=== PATIENT | male | born 1985 | race African-American/Black ===

== ENCOUNTER 2017-01-05 09:56 | Emergency (ER) | payer OTHER | END 2017-01-05 10:50 | disposition home or self-care (01) | LOC: D.ER 09:56 | DX: S61.411A Laceration without foreign body of right hand, initial encounter (principal); W26.0XXA Contact with knife, initial encounter ==

== ENCOUNTER 2017-01-16 20:54 | Emergency (ER) | payer OTHER | END 2017-01-16 21:25 | disposition home or self-care (01) | LOC: D.ER 20:54 | DX: S61.411D Laceration without foreign body of right hand, subsequent encounter (principal); L08.9 Local infection of the skin and subcutaneous tissue, unspecified; X58.XXXD Exposure to other specified factors, subsequent encounter; Y92.89 Other specified places as the place of occurrence of the external cause; Z48.02 Encounter for removal of sutures; R50.9 Fever, unspecified ==

== ENCOUNTER 2018-01-17 21:06 | Emergency (ER) | payer OTHER ==
[~2018-01-17] VITALS: Ht 162.6 cm; Wt 72.7 kg
[2018-01-17 21:27] VITALS: BP 133/94; Ht 162.6 cm; Wt 72.7 kg
[2018-01-17] MEDS ORDERED: NAPROSYN500 MG PO (23:10)
[2018-01-17] MEDS ORDERED: ULTRAM50 MG PO (23:10)
== END 2018-01-17 23:11 | disposition home or self-care (01) ==
LOC: D.ER 21:06
DX: M77.01 Medial epicondylitis, right elbow (principal); F17.200 Nicotine dependence, unspecified, uncomplicated

== ENCOUNTER 2019-09-02 12:38 | Inpatient (IN) | payer SELFPAY ==
[~2019-09-02] VITALS: Ht 162.6 cm; Wt 70.9 kg
[~2019-09-02 12:38] MED LIST: NAPROSYN500 MG PO; ULTRAM50 MG PO
[2019-09-02 14:09] LABS: BASOPHILS 0.3 % (0-2); EOSINOPHILS 2.9 % (0-7); HEMATOCRIT 38.3 % (42.0-54.0); HEMOGLOBIN 12.3 g/dL (13.5-17.5); IMMATURE GRANULOCYTES 0.2 % (0-5); LYMPHOCYTES 12.9 % (15-50); MCH 24.4 pg (26.0-34.0); MCHC 32.1 g/dL (31.0-37.0); MEAN PLATELET VOLUME 9.4 fL (7.4-10.4); MONOCYTES 4.6 % (2-11); NEUTROPHILS 79.1 % (40-80); PLATELET COUNT 265 10x3/uL (130-400); RBC 5.04 10x6/uL (4.20-6.10); RDW 13.1 % (11.5-14.5); WBC 9.7 10x3/uL (4.8-10.8)
[2019-09-02 14:24] LABS: CALC OSMOLALITY 275 mosm/kg (275-300); CALCIUM 9.1 mg/dL (8.5-10.1); CARBON DIOXIDE 29.3 mmol/L (21.0-32.0); CHLORIDE - SERUM 103 mmol/L (98-107); GLUCOSE 92 mg/dL (74-106); POTASSIUM - SERUM 3.9 mmol/L (3.5-5.1); SODIUM 139 mmol/L (136-145); UREA NITROGEN 6 mg/dL (7-18); eGFR NON AFRICAN AMERICAN > 90 mL/min (90-120)
[2019-09-02 14:29] LABS: ALBUMIN 3.5 g/dL (3.4-5.0); ALKALINE PHOSPHATASE 80 U/L (30-120); ALT (SGPT) 151 U/L (10-68); BILIRUBIN - TOTAL 0.85 mg/dL (0.2-1.3); PROTEIN - SERUM 7.5 g/dL (6.4-8.2)
--- NOTE | 2019-09-02 18:05 | NUR ---
PT ARRIVED VIA WHEEELCHIAR TO ROOM, STATES PAIN IS AT A NINE. FAMILY MEMBER AT BEDSIDE. CL IN REACH, SRX2, AMBULATES WITHOUT ASSIST.
--- NOTE | 2019-09-02 19:24 | NUR ---
RECEIVED UP IN BED WITH EYES OPEN AND TV ON. VISITOR AT BEDSIDE. ALERT AND ORIENTED X4. UP AD MARIANO TO B/R. IV TO LT FA WITH NS INFUSING AT 125CC/HR. DENIES ANY NEEDS AT THIS TIME.
[2019-09-02 20:00] VITALS: BP 137/76
[2019-09-03] VITALS: BP 142/87
[2019-09-03 00:07] VITALS: BP 136/92; BMI 27.5
[2019-09-03 05:09] LABS: BASOPHILS 0.5 % (0-2); EOSINOPHILS 3.4 % (0-7); HEMATOCRIT 34.6 % (42.0-54.0); IMMATURE GRANULOCYTES 0.2 % (0-5); LYMPHOCYTES 13.2 % (15-50); MCH 24.3 pg (26.0-34.0); MCHC 31.8 g/dL (31.0-37.0); MCV 76.4 fL (80.0-100.0); MEAN PLATELET VOLUME 9.5 fL (7.4-10.4); MONOCYTES 5.5 % (2-11); NEUTROPHILS 77.2 % (40-80); PLATELET COUNT 256 10x3/uL (130-400); RBC 4.53 10x6/uL (4.20-6.10); RDW 13.1 % (11.5-14.5)
[2019-09-03 05:27] LABS: ALKALINE PHOSPHATASE 65 U/L (30-120); ALT (SGPT) 115 U/L (10-68); BILIRUBIN - TOTAL 0.68 mg/dL (0.2-1.3); CALC OSMOLALITY 280 mosm/kg (275-300); CALCIUM 8.7 mg/dL (8.5-10.1); CARBON DIOXIDE 29.4 mmol/L (21.0-32.0); CHLORIDE - SERUM 105 mmol/L (98-107); CREATININE - SERUM 1.1 mg/dL (0.6-1.3); GLUCOSE 100 mg/dL (74-106); POTASSIUM - SERUM 3.9 mmol/L (3.5-5.1); PROTEIN - SERUM 6.4 g/dL (6.4-8.2); SODIUM 142 mmol/L (136-145); UREA NITROGEN 7 mg/dL (7-18); eGFR NON AFRICAN AMERICAN 81 mL/min (90-120)
--- NOTE | 2019-09-03 09:48 | NUR ---
PT ALERT AND ORIENTED, SITTING IN BED WHEN I ENTERED. FAMILY MEMBER AT BEDSIDE. PT COMPLAINTS OF PAIN TO THE AFFECTED SIDE OF HIS FACE BUT STATES THAT IT IS OVERAL BETTER THAN YESTERDAY. PT AKSING ABOUT WHEN HE MAY GO HOME, BUT UNDERSTANDS TO WAIT FOR THE TO ROUND. CL IN REACH, SRX2,
[2019-09-03 10:04] VITALS: BP 139/87
--- NOTE | 2019-09-03 10:21 | NUR ---
I have reviewed this patient and I concur with the Shift Assessment completed by the Licensed Practical Nurse today this shift.
[2019-09-03 12:04] VITALS: Ht 162.6 cm; Wt 70.9 kg
[2019-09-03 13:48] VITALS: BP 147/86
[2019-09-03 17:38] VITALS: BP 149/96
--- NOTE | 2019-09-03 18:21 | NUR ---
PT AWAKE AND ORIENTED, C/O PAIN IN THE AFFECTED SIDE OF HIS FACE. ADMINISTERED PAIN MEDS PER MD ORDER. NO OTHER OMPALINTS OR CONCERNS AT THIS ITME. CL INR EACH,SRX2.
--- NOTE | 2019-09-03 19:47 | NUR ---
RECEIVED UP IN ROOM AMBULATING. IV TO LT FA WITH NS AT 100CC/HR. NO REDNESS OR SWELLING TO AREA AND DSG CDI. GOES OUTSIDE TO SMOKE. REMINDED THAT IF HE HAS HIS MORPHINE HE WILL NOT BE ABLE TO GO OUTSIDE DUE TO SAFTEY ISSUES. VERBAL AGREEMENT GIVEN. DENIES ANY NEEDS AT THIS TIME.
[2019-09-03 20:00] VITALS: BP 138/84
[2019-09-03 22:45] LABS: UDS - AMPHET NEGATIVE QUAL (NEGATIVE); UDS - BARB NEGATIVE QUAL (NEGATIVE); UDS - BENZO NEGATIVE QUAL (NEGATIVE); UDS - COCAINE NEGATIVE QUAL (NEGATIVE); UDS - OPIATE POSITIVE QUAL (NEGATIVE); UDS - PCP NEGATIVE QUAL (NEGATIVE); UDS - THC POSITIVE QUAL (NEGATIVE)
[2019-09-03 22:49] LABS: BILIRUBIN NEGATIVE (NEGATIVE); GLUCOSE NEGATIVE (NEGATIVE); KETONE NEGATIVE (NEGATIVE); NITRITE NEGATIVE (NEGATIVE); UROBILINOGEN NORMAL (NORMAL)
[2019-09-04 04:00] VITALS: BP 150/85
[2019-09-04 06:38] LABS: BASOPHILS 0.4 % (0-2); EOSINOPHILS 3.2 % (0-7); HEMATOCRIT 33.9 % (42.0-54.0); HEMOGLOBIN 10.7 g/dL (13.5-17.5); IMMATURE GRANULOCYTES 0.1 % (0-5); LYMPHOCYTES 17.4 % (15-50); MCH 24.2 pg (26.0-34.0); MCHC 31.6 g/dL (31.0-37.0); MCV 76.5 fL (80.0-100.0); MEAN PLATELET VOLUME 9.9 fL (7.4-10.4); NEUTROPHILS 71.9 % (40-80); PLATELET COUNT 290 10x3/uL (130-400); RBC 4.43 10x6/uL (4.20-6.10); RDW 12.9 % (11.5-14.5); WBC 9.4 10x3/uL (4.8-10.8)
[2019-09-04 07:09] LABS: CALC OSMOLALITY 278 mosm/kg (275-300); CALCIUM 8.3 mg/dL (8.5-10.1); CHLORIDE - SERUM 104 mmol/L (98-107); GLUCOSE 102 mg/dL (74-106); POTASSIUM - SERUM 4.2 mmol/L (3.5-5.1); SODIUM 141 mmol/L (136-145); UREA NITROGEN 8 mg/dL (7-18); eGFR NON AFRICAN AMERICAN > 90 mL/min (90-120)
--- NOTE | 2019-09-04 07:15 | NUR ---
PT RESTING PEACEFULLY, EYES CLOSED BREATHS EVEN/REGULAR AND UNLABORED. NO SIGNS OR SYMTPOMS OF ACUTE DISTRESS NTOED AT THIS TIME. FAMILY MEMBER AT BEDSIDE ALSO SLEEPING PEACEFULLY. CL IN REACH, SRX2.
--- NOTE | 2019-09-04 09:39 | NUR ---
PT AWAKE AND ORIENTED, PACING ROOM. PT IS EXTREMELY UPSET AND FEELS LIKE WE ARE NOT DOING ENOUGH FOR HIM. REQUESTING MORE PAIN MEDICATION BUT IT IS TOO EARLY I GAVE HIM MORHPINE LESS THAN 1.5 HOURS AGO, LESS THAN 1HR WHEN HE INITAILLY ASKED FOR MORE PAIN MEDICATIONS. CALLED HEMALATHA PETERSON AND REQUESTED HYDROCHODONE FOR THE PT A DIFFERENT PAIN CONTROL ALTERANTIVE. WHILE GETTING THAT ORDER PTS FATHER CAME UP TO THE DESK STATING HE WANTED THE PT D/C SO THEY COULD TAKE HIM TO [place] AND RECIEVE "BETTER" CARE. PT REPEATEDLY ASKED ME IF I WAS SURE THAT I ACTAULLY GAVE HIM THE 4MG OF MORPHINE. I DEFFINITLY DID SHOWED IN MY MAR. PT IS ALSO UPSET HE CAN NO LONGER GO OUTSIDE TO SMOKE D/T THE INCREASED PRECATUIONS THE HOSPITAL INTRODUCED THIS MORNING. CL IN REACH,S RX2.
[2019-09-04 11:00] VITALS: BP 137/65
--- NOTE | 2019-09-04 12:22 | NUR ---
PT AWAKE AND ORIENTED. HAS BEEN COMPLAINING OF TOOTH PAIN ALL DAY. BAGGAGE PORTER ORDERED DILAUDID AND 800MG IBUPROPHIN LESS THAN 1 HR AFTER I GAVE NORCO AND LESS THAN 2 HOURS AFTER I GAVE MORPHINE. DOUBLE CHEKCED WITH HER THAT SHE WANTED ME TO GIVE THE NEW ORDERS AT THE TIME OF HER ORDER, SHE CONFIRMED. ADMINISTERED PER BAGGAGE PORTER. GIRLFRIEND AT [facility]. CL IN REACH,S RX2.
--- NOTE | 2019-09-04 15:16 | NUR ---
I have reviewed this patient and I concur with the Shift Assessment completed by the Licensed Practical Nurse today this shift.
--- NOTE | 2019-09-04 16:52 | MORECARE ---
CASE MANAGEMENT DISCHARGE SUMMARY PATIENT: ABEL ORLANDO JR UNIT: [id number] ADM DATE: 09/02/19 AGE: 34 : 85 SEX: M ROOM/BED: D.2105 AUTHOR: LALITHA NORWOOD PHYSICIAN: REFERRING PHYSICIAN: JOSH CHENEY MD DATE OF SERVICE: 09/04/19 Discharge Plan Patient Name: ABEL ORLANDO [facility] [facility] 1985 Planned Disposition: Home Anticipated Discharge Date: 09/04/19 Discharge Date: Expected LOS: 2 Initial Reviewer: [email or web address] Initial Review Date: 09/02/2019 Generated: 09/04/19 5:51 pm Patient Name: ABEL ORLANDO Page [phone] at 1652 All edits/amendments must be made on the electronic document DICTATION DATE: 09/04/191650 REGISTERED NURSE CARDIAC: MIRZA 09/04/191650 RPT#: [id number] DC DATE: STATUS: ADM IN [facility] [address] [place] [address] END OF REPORT
--- NOTE | 2019-09-04 16:59 | MORECARE ---
CASE MANAGEMENT DISCHARGE SUMMARY PATIENT: ABEL ORLANDO JR UNIT: [id number] ADM DATE: 09/02/19 AGE: 34 : 85 SEX: M ROOM/BED: D.2105 AUTHOR: LALITHA NORWOOD PHYSICIAN: REFERRING PHYSICIAN: JOSH CHENEY MD DATE OF SERVICE: 09/04/19 Discharge Plan Patient Name: ABEL ORLANDO [facility] [facility] 1985 Planned Disposition: Home Anticipated Discharge Date: 09/04/19 Discharge Date: Expected LOS: 2 Initial Reviewer: [email or web address] Initial Review Date: 09/02/2019 Generated: 09/04/19 5:58 pm DCPIA - Discharge Planning Initial Assessment Updated by [email or web address]: Kalen Ventura on 09/04/19 4:54 pm * Is the patient Alert and Oriented? Yes * How many steps to enter\exit or inside your home? * PCP NONE * Pharmacy [facility] ON [address] * Preadmission Environment Home with Family * ADLs Independent * Equipment None * Other Equipment NO MEDICAL EQUIPMENT PROVIDER PREFERENCE * List name and contact numbers for known caregivers / representatives who currently or will assist patient after discharge: ABEL MARIO SR., FATHER, * Verbal permission to speak to the caregivers and representatives has been obtained from the patient. N/A * Community resources currently utilized None * Please name any agencies selected above. NONE * Additional services required to return to the preadmission environment? No * Can the patient safely return to the preadmission environment? Yes * Has this patient been hospitalized within the prior 30 days at any hospital? No Last DP export: 09/04/19 3:52 p Patient Name: ABEL ORLANDO Page [phone] at 1659 All edits/amendments must be made on the electronic document DICTATION DATE: 09/04/191657 MENTAL HYGIENIST: MIRZA 09/04/191657 RPT#: [id number] DC DATE: STATUS: ADM IN [facility] [address] [place] [address] END OF REPORT
--- NOTE | 2019-09-04 17:07 | MORECARE ---
CASE MANAGEMENT DISCHARGE SUMMARY PATIENT: ABEL ORLANDO JR UNIT: [id number] ADM DATE: 09/02/19 AGE: 34 : 85 SEX: M ROOM/BED: D.2107 AUTHOR: CUCO,DOC PHYSICIAN: REFERRING PHYSICIAN: JOSH CHENEY MD DATE OF SERVICE: 09/04/19 Discharge Plan Patient Name: ABEL ORLANDO Facility: [facility]:[place] : 1985 Planned Disposition: Home Anticipated Discharge Date: 09/04/19 Discharge Date: Expected LOS: 2 Initial Reviewer: [email or web address] Initial Review Date: 09/02/2019 Generated: 09/04/19 6:07 pm Comments DCP- Discharge Planning Updated by [email or web address]: Kalen Ventura on 09/04/19 4:[address] Patient Name: ABEL ORLANDO Admission Status: ER Accout number: [id number] Admission Date: 09-02-2019 : 1985 Admission Diagnosis: Attending: JOSH CHENEY Current LOS: 2 Anticipated DC Date: 09-04-2019 Planned Disposition: Home Primary Insurance: UNINSURED DISCOUNT PLAN Discharge Planning Comments: CM MET WITH PT IN ROOM TO DISCUSS DISCHARGE PLANNING AND NEEDS. PT REPORTS LIVING AT HOME INDEPENDENTLY WITH HIS FATHER. PT HAS NO MEDICAL EQUIPMENT AND NO OUTSIDE SERVICES ASSISTING IN THE HOME. CM DISCUSSED AVAILABILITY OF HOME HEALTH, REHAB SERVICES AND MEDICAL EQUIPMENT. PT DENIES DISCHARGE NEEDS, REPORTS HIS FATHER WILL PICK HIM UP FOR DISCHARGE HOME. PT STATES HAS NEW JOB AND IS PAYING FOR INSURANCE COVERAGE THAT WILL TAKE EFFECT 09-20-19. PT WAS TRYING TO WAIT UNTIL HIS INSURANCE WAS IN EFFECT TO GET DENTAL CARE FOR HIS INFECTED TOOTH. PT STATES THAT HE ONLY CAME TO EMERGENCY ROOM FOR ANTIBIOTICS AND THEY ADMITTED HIM. CM PROVIDED PT WITH [facility] [employer] PRESCRIPTION DISCOUNT CARD AND HEALTHY CONNECTIONS CLINIC INFORMATION. CM SPOKE TO SHAYY OF [employer], PT IS OVER INCOME FOR MEDICAID. PT PLANS TO DISCHARGE HOME WITH HIS FATHER, REPORTS ABILITY TO OBTAIN ORAL ANTIBIOTICS IF THEY ARE NOT TOO EXPENSIVE. CM TO FOLLOW AND ASSIST NECESSARY. Leaf Conditioner Helper: Kalen Ventura DCPIA - Discharge Planning Initial Assessment Updated by [email or web address]: Klaen Ventura on 09/04/19 4:54 pm * Is the patient Alert and Oriented? Yes * How many steps to enter\exit or inside your home? * PCP NONE * Pharmacy [facility] [address] * Preadmission Environment Home with Family * ADLs Independent * Equipment None * Other Equipment NO MEDICAL EQUIPMENT PROVIDER PREFERENCE * List name and contact numbers for known caregivers / representatives who currently or will assist patient after discharge: ABEL MARIOSR., FATHER, * Verbal permission to speak to the caregivers and representatives has been obtained from the patient. N/A * Community resources currently utilized None * Please name any agencies selected above. NONE * Additional services required to return to the preadmission environment? No * Can the patient safely return to the preadmission environment? Yes * Has this patient been hospitalized within the prior 30 days at any hospital? No Last DP export: 09/04/19 3:59 p Patient Name: ABEL ORLANDO Page 25052 at 1707 All edits/amendments must be made on the electronic document DICTATION DATE: 09/04/191706 OFFSET LITHOGRAPHIC PRESS OPERATOR: MIRZA 09/04/191706 RPT#: [id number] DC DATE: STATUS: ADM IN [facility] [address] [place] [address] END OF REPORT
--- NOTE | 2019-09-04 18:31 | NUR ---
PT AWAKE AND ORIENTED. SPENT 20 PLUS MINUTES EXPLAINING TO PT WHY HE COULD NOT HAVE IBUPROPHIN 800MG, DILAUDID 1MG AND NORCO 5'S ALL AT THE SAME TIME EVEN THOUGH I GAVE HIM A SIMILAR THING EARLIER THAT DAY (SEE MAR) PER KRISTEN SHELBY PERMISSION. TRIED TO EXPLAIN HOW STAGGERING PAIN MEDICATIONS WORK AND WHY IT'S BEST TO GET THE BEST EFFECT. PT NEVER REALLY GRASPED CONCEPT. I WROTE IT ALL ON THE BOARD WHEN [employer] AVALIBALE PAIN MEDIACATIONS WERE AND HOW OFTEN THEY WERE AVALIABLE. PT STILL CONFUSED.AFTER LEAVING, PT THEN MADE TRIPS OUT TO THE CART. HE WAS UNHOOKING HIS I/V. I'VE CAUGHT THE PT DOING THIS OTHER TIMES TODAY AND INSTURCTED HIM TO STOP, THAT I WOULD UNHOOK HIM IF IT WAS NEEDED. PT WOULD AGREE, THEN DO IT ANYWAY. THIS PAST TIME HE WAS RUNNING VANCOMOCIN. THIS WILL NOT BE CONDUSIVE TO THE PT GETTING BETTER. TRIED TO EXPLAIN THIS. CL INR EACH, SRX2 GIRLFRIEND AT BEDSIDE.
[2019-09-04 20:00] VITALS: BP 149/95
--- NOTE | 2019-09-04 21:35 | NUR ---
EVENING ROUNDS COMPLETED. PT AOOX4, VSS ALTHOUGH TEMP 100.1 AT THIS TIME. MOUTH SWOLLEN ON R.SIDE. PT C/O PAIN IN MOUTH 02/28. IV PRN DILAUDID GIVEN. ATBX INFUSING AT THIS TIME. PT DENIES ANY FURTHER NEEDS AT THIS TIME. WILL CPOC. CL WITHIN REACH.
[2019-09-05 01:22] VITALS: BP 128/90
[2019-09-05 05:14] LABS: BASOPHILS 0.8 % (0-2); HEMATOCRIT 34.9 % (42.0-54.0); HEMOGLOBIN 10.7 g/dL (13.5-17.5); IMMATURE GRANULOCYTES 0.1 % (0-5); LYMPHOCYTES 23.4 % (15-50); MCHC 30.7 g/dL (31.0-37.0); MCV 78.3 fL (80.0-100.0); MEAN PLATELET VOLUME 9.1 fL (7.4-10.4); MONOCYTES 6.7 % (2-11); PLATELET COUNT 280 10x3/uL (130-400); RBC 4.46 10x6/uL (4.20-6.10); RDW 12.8 % (11.5-14.5); WBC 7.3 10x3/uL (4.8-10.8)
--- NOTE | 2019-09-05 05:24 | NUR ---
PT PULLED OUT IV. PT STATES WHILE ASLEEP. NO S/S OF BLEEDING. NEW PIV STARTED IN RFA 20G X1. PT TOLERATE WELL. IV PRN DILAUDID GIVEN AT THIS TIME. PT VOICED THANKS. WILL CTM. CL WITHIN REACH.
[2019-09-05 05:34] LABS: CALC OSMOLALITY 279 mosm/kg (275-300); CALCIUM 8.6 mg/dL (8.5-10.1); CHLORIDE - SERUM 105 mmol/L (98-107); GLUCOSE 105 mg/dL (74-106); POTASSIUM - SERUM 3.8 mmol/L (3.5-5.1); SODIUM 141 mmol/L (136-145); UREA NITROGEN 10 mg/dL (7-18); eGFR NON AFRICAN AMERICAN > 90 mL/min (90-120)
[2019-09-05 05:46] LABS: CARBON DIOXIDE 30.4 mmol/L (21.0-32.0)
[2019-09-05 05:55] VITALS: BP 127/64
[2019-09-05 09:41] VITALS: BP 138/89
--- NOTE | 2019-09-05 12:00 | NUR ---
THIS ELECTRICAL PROSPECTING OBSERVER HEARD IV ALARMING, WENT TO ROOM TO FIX IV AND PATIENT OPEN HIS DOOR AND PUSHED THE BEEPING IV POLE OUT INTO THE HALLWAY, TURNED AROUND AND WENT BACK INTO HIS ROOM. BLIND ESCORT STATES PATIENT IS UPSET BECAUSE HE WANTS PAIN MEDICATION. PATIENTS NURSE MADE AWARE OF HIS ACTIONS AND THAT THE IV POLE IS TURNED OFF AND IN THE HALLWAY IN FRONT OF THE PATIENTS DOOR.
--- NOTE | 2019-09-05 13:07 | NUR ---
RESTS IN BED WITH CALL LIGHT IN REACH. IV PATENT TO RIGHT FA WITH NS INFUSING AT 100CC/HR. WARREN NEEDS AT THIS TIME. WILL MONITOR.
[2019-09-05 14:01] VITALS: BP 134/75
[2019-09-05 15:18] LABS: ALBUMIN 3.1 g/dL (3.4-5.0); BILIRUBIN - DIRECT 0.15 mg/dL (0.00-0.30); BILIRUBIN - INDIRECT 0.38 mg/dL (0.00-1.00); BILIRUBIN - TOTAL 0.53 mg/dL (0.2-1.3); PROTEIN - SERUM 6.1 g/dL (6.4-8.2)
[2019-09-05 18:10] VITALS: BP 138/70
[2019-09-05 20:00] VITALS: BP 122/81
[2019-09-06 00:16] VITALS: BP 121/93
--- NOTE | 2019-09-06 03:02 | NUR ---
2000) REC'D CHGE OF SHIFT WALKING ROUNDS REQUESTING IV PAIN MEDS. INSTRUCTED WAS TOO SOON.INFORMED TO NURSES ARE SUPPOSE TO BRING ME PAIN MED EVERY TWO HRS.INSTRUCTED HOWEVER PHYSICIAN HAS ORDERED PAIN MED TO BE GIVEN THAT IS HOW NURSING STAFF GIVES IT.FACIAL SWELLING OBSERVED RIGHT CHEEK.NO REDNESS OBSERVED.WILL CONTINUE TO MONITOR FOR ANY CHGES AND FOLLOW CURRENT PLAN OF CARE.
[2019-09-06 05:15] VITALS: BP 131/75
[2019-09-06 05:26] LABS: BASOPHILS 1.3 % (0-2); EOSINOPHILS 4.5 % (0-7); HEMATOCRIT 38.1 % (42.0-54.0); HEMOGLOBIN 11.7 g/dL (13.5-17.5); IMMATURE GRANULOCYTES 0.1 % (0-5); LYMPHOCYTES 23.4 % (15-50); MCHC 30.7 g/dL (31.0-37.0); MCV 78.2 fL (80.0-100.0); MEAN PLATELET VOLUME 9.9 fL (7.4-10.4); MONOCYTES 6.2 % (2-11); NEUTROPHILS 64.5 % (40-80); RBC 4.87 10x6/uL (4.20-6.10); RDW 12.9 % (11.5-14.5); WBC 7.1 10x3/uL (4.8-10.8)
[2019-09-06 05:34] LABS: PLATELET COUNT 373 10x3/uL (130-400)
[2019-09-06 05:37] LABS: CALC OSMOLALITY 277 mosm/kg (275-300); CALCIUM 9.3 mg/dL (8.5-10.1); CARBON DIOXIDE 31.5 mmol/L (21.0-32.0); CHLORIDE - SERUM 103 mmol/L (98-107); GLUCOSE 106 mg/dL (74-106); POTASSIUM - SERUM 4.3 mmol/L (3.5-5.1); SODIUM 140 mmol/L (136-145); UREA NITROGEN 10 mg/dL (7-18); eGFR NON AFRICAN AMERICAN > 90 mL/min (90-120)
--- NOTE | 2019-09-06 06:23 | NUR ---
I have reviewed this patient and I concur with the Shift Assessment completed by the Licensed Practical Nurse today this shift.
--- NOTE | 2019-09-06 07:10 | NUR ---
REPORT RECEIVED FROM RAIL CAR PAINTER/SANDBLASTER AND PATIENT CARE ASSUMED. PATIENT SITTNG UP IN BED AWAKE, ALERT AND ORIENTED X 4. PATIENT DENIES ANY NEEDS OR PAIN. CHANCE CONTINUE WITH PLAN OF CARE. SR UP X 2 BED IN LOW POSITION AND CALL LIGHT IN REACH.
[2019-09-06 07:59] VITALS: BP 127/70
[2019-09-06 11:42] VITALS: BP 116/58
[2019-09-06 15:38] VITALS: BP 119/72
--- NOTE | 2019-09-06 15:39 | NUR ---
PER GARCIA DICK APN, DC DILAUDED. ORDER COMPLETED
--- NOTE | 2019-09-06 19:18 | NUR ---
PATIENT SITTING UP IN BED ON THE PHONE. NO SIGNS OF ACUTE DISTRESS NOTED AT THIS TIME. PATIENT REQUESTS BLANKETS AND TOWELS. L FA IV, NS @75, NO REDNESS OR SWELLING NOTED. BED IN LOW POSITION, RAILS X2. BEDSIDE TABLE AND CALL LIGHT WITHIN REACH.
[2019-09-06 20:18] VITALS: BP 134/68
[2019-09-07 00:20] VITALS: BP 125/73
[2019-09-07 04:20] VITALS: BP 124/63
[2019-09-07 04:32] VITALS: BP 124/63
[2019-09-07 05:55] LABS: BASOPHILS 1.6 % (0-2); EOSINOPHILS 5.8 % (0-7); HEMATOCRIT 35.3 % (42.0-54.0); HEMOGLOBIN 10.8 g/dL (13.5-17.5); IMMATURE GRANULOCYTES 0.2 % (0-5); LYMPHOCYTES 31.4 % (15-50); MCH 23.8 pg (26.0-34.0); MCHC 30.6 g/dL (31.0-37.0); MCV 77.9 fL (80.0-100.0); MEAN PLATELET VOLUME 9.1 fL (7.4-10.4); MONOCYTES 8.5 % (2-11); NEUTROPHILS 52.5 % (40-80); PLATELET COUNT 351 10x3/uL (130-400); RBC 4.53 10x6/uL (4.20-6.10); RDW 12.9 % (11.5-14.5); WBC 6.4 10x3/uL (4.8-10.8)
[2019-09-07 06:11] LABS: CALC OSMOLALITY 282 mosm/kg (275-300); CALCIUM 8.7 mg/dL (8.5-10.1); CARBON DIOXIDE 30.6 mmol/L (21.0-32.0); CHLORIDE - SERUM 105 mmol/L (98-107); CREATININE - SERUM 1.1 mg/dL (0.6-1.3); GLUCOSE 76 mg/dL (74-106); SODIUM 142 mmol/L (136-145); eGFR NON AFRICAN AMERICAN 81 mL/min (90-120)
[2019-09-07 06:12] LABS: UREA NITROGEN 16 mg/dL (7-18)
[2019-09-07 09:44] VITALS: BP 129/66
[2019-09-07 12:38] LABS: ALBUMIN 3.1 g/dL (3.4-5.0); BILIRUBIN - DIRECT 0.13 mg/dL (0.00-0.30); BILIRUBIN - INDIRECT 0.55 mg/dL (0.00-1.00); BILIRUBIN - TOTAL 0.68 mg/dL (0.2-1.3); PROTEIN - SERUM 6.6 g/dL (6.4-8.2)
--- NOTE | 2019-09-07 12:50 | NUR ---
NO FLU SHOT SEEN UPON ADMIT. LUIS A BRASHER ASKED PATIENT IF HE WANTED ONE AND PATIENT REFUSED.
[2019-09-07] MEDS ORDERED: CLEOCIN HCL300 MG PO (13:22)
--- NOTE | 2019-09-07 13:23 | NUR ---
IV REMOVED, PT CALLING FOR TRANSPORTATION. WAITING FOR ANTIBIOTICS DOSING TO BE CLARIFIED PRIOR TO DISCHARGE.
[2019-09-07 13:47] VITALS: BP 119/80
[2019-09-07] MEDS ORDERED: ACETAMINOPHEN500 M1 PO (15:04)
--- NOTE | 2019-09-07 15:56 | NUR ---
DISCHARGE INSTRUCTIONS REVIEWED. PT TO TAKE EXTRA STRENGTH TYLENOL FOR PAIN. SCRIPTS AT [facility].
--- NOTE | 2019-09-08 08:15 | MORECARE ---
CASE MANAGEMENT DISCHARGE SUMMARY PATIENT: ABEL ORLANDO JR UNIT: [id number] ADM DATE: 09/02/19 AGE: 34 : 85 SEX: M ROOM/BED: D.2103 AUTHOR: CUCO,DOC PHYSICIAN: REFERRING PHYSICIAN: JOSH CHENEY MD DATE OF SERVICE: 09/08/19 Discharge Plan Patient Name: ABEL ORLANDO Facility: [facility]:[place] : 1985 Planned Disposition: Home Anticipated Discharge Date: 09/07/19 Discharge Date: 09/07/2019 Expected LOS: 5 Initial Reviewer: [email or web address] Initial Review Date: 09/02/2019 Generated: 09/08/19 9:15 am DCP- Discharge Planning Updated by [email or web address]: Kalen Ventura on 09/04/19 4:[address] Patient Name: ABEL ORLANDO Admission Status: ER Accout number: [id number] Admission Date: 09-02-2019 : 1985 Admission Diagnosis: Attending: JOSH CHENEY Current LOS: 2 Anticipated DC Date: 09-04-2019 Planned Disposition: Home Primary Insurance: UNINSURED DISCOUNT PLAN Discharge Planning Comments: CM MET WITH PT IN ROOM TO DISCUSS DISCHARGE PLANNING AND NEEDS. PT REPORTS LIVING AT HOME INDEPENDENTLY WITH HIS FATHER. PT HAS NO MEDICAL EQUIPMENT AND NO OUTSIDE SERVICES ASSISTING IN THE HOME. CM DISCUSSED AVAILABILITY OF HOME HEALTH, REHAB SERVICES AND MEDICAL EQUIPMENT. PT DENIES DISCHARGE NEEDS, REPORTS HIS FATHER WILL PICK HIM UP FOR DISCHARGE HOME. PT STATES HAS NEW JOB AND IS PAYING FOR INSURANCE COVERAGE THAT WILL TAKE EFFECT 09-20-19. PT WAS TRYING TO WAIT UNTIL HIS INSURANCE WAS IN EFFECT TO GET DENTAL CARE FOR HIS INFECTED TOOTH. PT STATES THAT HE ONLY CAME TO EMERGENCY ROOM FOR ANTIBIOTICS AND THEY ADMITTED HIM. CM PROVIDED PT WITH [employer] PRESCRIPTION DISCOUNT CARD AND HEALTHY CONNECTIONS CLINIC INFORMATION. CM SPOKE TO SHAYY OF [employer], PT IS OVER INCOME FOR MEDICAID. PT PLANS TO DISCHARGE HOME WITH HIS FATHER, REPORTS ABILITY TO OBTAIN ORAL ANTIBIOTICS IF THEY ARE NOT TOO EXPENSIVE. CM TO FOLLOW AND ASSIST NECESSARY. Load Out Worker: Kalen Ventura DCPIA - Discharge Planning Initial Assessment Updated by [email or web address]: Kalen Ventura on 09/04/19 4:54 pm * Is the patient Alert and Oriented? Yes * How many steps to enter\exit or inside your home? * PCP NONE * Pharmacy [facility] [address] * Preadmission Environment Home with Family * ADLs Independent * Equipment None * Other Equipment NO MEDICAL EQUIPMENT PROVIDER PREFERENCE * List name and contact numbers for known caregivers / representatives who currently or will assist patient after discharge: ABEL MARIOSR., FATHER, * Verbal permission to speak to the caregivers and representatives has been obtained from the patient. N/A * Community resources currently utilized None * Please name any agencies selected above. NONE * Additional services required to return to the preadmission environment? No * Can the patient safely return to the preadmission environment? Yes * Has this patient been hospitalized within the prior 30 days at any hospital? No Last DP export: 09/04/19 4:07 p Patient Name: ABEL ORLANDO Page [phone] at 0815 All edits/amendments must be made on the electronic document DICTATION DATE: 09/08/19814 HULL SORTER: MIRZA 09/08/19814 RPT#: [id number] DC DATE:09/07/19 STATUS: DIS IN [facility] [address] [place] [address] END OF REPORT
== END 2019-09-07 15:57 | disposition home or self-care (01) | DRG 158 ==
LOC: D.ER 12:38 → D.M2 15:53
PROVIDERS: Emergency Medicine; Family Medicine; ADMIT Internal Medicine Nephrology; ATTEND Internal Medicine Nephrology
DX: K12.2 Cellulitis and abscess of mouth (principal); F17.213 Nicotine dependence, cigarettes, with withdrawal; D50.9 Iron deficiency anemia, unspecified